=== PATIENT | male | born 1995 | race Caucasian/White ===

== ENCOUNTER 2023-03-14 10:39 | Emergency (ER) | payer OTHER ==
[~2023-03-14] VITALS: Ht 180.3 cm; Wt 90.7 kg
--- NOTE | 2023-03-14 11:09 | NUR ---
SW Consult: SW consult requested for possible substance abuse. Patient presents alert and oriented x3. Patient presented with a flat affect. 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 Patient stated he was brought to the hospital due to having an argument with . Patient stated that he lives with his uncle and cousins. Address: [address] [place] [id number]. Patient denies suicidal or homicidal ideation. Patient denies visual or auditory hallucinations. Patient denies smoking or substance use. He stated that he relapsed yesterday and drank due to the argument with his . He stated that he has not been drinking for the past 6 months and has been sober. He stated that he goes to anger management classes at [facility] and is in AA. SW offered pt resources for substance and he stated that he declines and does not want it. DC PLAN: Address: [address] [place] [id number]. He wants to be discharged back home.
[2023-03-14 11:39] VITALS: BP 118/77
--- NOTE | 2023-03-14 11:39 | NUR ---
Patient discharged to home in stable condition. Written and verbal after care instructions given. Patient verbalizes understanding of instruction.
== END 2023-03-14 11:39 | disposition home or self-care (01) ==
LOC: ER 10:43
DX: S09.8XXA Other specified injuries of head, initial encounter (principal); F10.10 Alcohol abuse, uncomplicated; W01.0XXA Fall on same level from slipping, tripping and stumbling without subsequent striking against object, initial encounter; Y93.89 Activity, other specified; Y92.89 Other specified places as the place of occurrence of the external cause; Y99.8 Other external cause status